=== PATIENT | female | born 1940 | race Caucasian/White ===

== ENCOUNTER 2020-03-12 15:07 | Outpatient (REF) | payer MEDICARE, SELFPAY | END 2020-03-12 15:08 | disposition home or self-care (01) | LOC: HO.MANLNP 15:07 | PROVIDERS: PCP Physician Assistant; Visit Provider Physician Assistant | DX: R30.9 Painful micturition, unspecified (principal) | CPT/HCPCS: 87086; 87088; 87186 ==

== ENCOUNTER 2020-04-03 09:53 | Outpatient (REF) | payer MEDICARE, SELFPAY ==
[2020-04-03 11:35] LABS: Glucose Urine UA NEG (NEG); Leukocyte Esterase Urine TRACE (NEG); Nitrite Urine POS (NEG); PH 6.5 (5.0-8.0); Specific Gravity - Urine 1.025 (1.005-1.025); Urine Blood NEG (NEG); Urine Ketones NEG (NEG); Urine Protein NEG (NEG-TRACE)
[2020-04-03 11:41] LABS: Appearance Urine HAZY; Color Urine YELLOW
[2020-04-03 12:33] LABS: RBC Urine 0 /HPF (0)
[2020-04-03 12:34] LABS: Bacteria Urine 3+ /LPF
== END 2020-04-03 09:54 | disposition home or self-care (01) ==
LOC: HO.MANLNP 09:53
PROVIDERS: PCP Physician Assistant; Visit Provider Physician Assistant
DX: N89.8 Other specified noninflammatory disorders of vagina (principal)
CPT/HCPCS: 81001; 87086; 87088; 87186

== ENCOUNTER 2020-07-08 08:37 | Outpatient (REF) | payer MEDICARE, SELFPAY ==
[2020-07-08 11:21] LABS: MANUAL DIFF FLAG NO
[2020-07-08 12:22] LABS: Basophils Percent Auto 0.3 % (0-2); Eosinophils Absolute Auto 0.3 X10*3/uL (0.0-0.4); Eosinophils Percent Auto 3.8 % (0-4); Hematocrit 40.3 % (37-47); Hemoglobin 12.7 g/dl (12.0-16.0); Imm Gran Abs Auto 0.04 X10*3/uL (0.00-0.03); Imm Gran Pct Auto 0.5 % (0.0-0.4); Lymphocytes Absolute Auto 2.3 X10*3/uL (1.2-4.9); Mean Corpuscular HGB Conc 31.5 g/dl (31.0-35.0); Mean Corpuscular Hemoglobin 28.5 pg (27.0-33.0); Mean Corpuscular Volume 90.6 fL (80-98); Mean Platelet Volume 10.9 fL (9.4-12.3); Monocytes Absolute Auto 0.7 X10*3/uL (0.1-1.2); Monocytes Percent Auto 9.7 % (2-11); Neutrophils Percent Auto 54.7 % (45-73); Platelet Count 308 X10*3/uL (160-400); Red Blood Count 4.45 X10*6/uL (4.20-5.50); White Blood Count 7.3 X10*3/uL (4.8-10.8)
[2020-07-08 12:38] LABS: Alanine Aminotransferase 8 U/L (0-31); Albumin Level 4.1 g/dL (3.5-5.0); Alkaline Phosphatase 128 U/L (39-117); Anion Gap 12 (12-20); Aspartate Amino Transferase 14 U/L (5-31); Bilirubin Total 0.7 mg/dL (0.0-1.0); Blood Urea Nitrogen 14 mg/dL (9-16); Calcium 9.3 mg/dL (8.4-10.2); Carbon Dioxide 25 mmol/L (22-29); Chloride 106 mmol/L (96-108); Estimated Glomerular Filt Rate 59; Glucose Random 101 mg/dL (60-115); Iron 95 mcg/dL (30-160); Percent Iron Saturation 25 % (15-50); Potassium 4.5 mmol/L (3.3-5.1); Sodium 138 mmol/L (135-145); Total Iron Binding Capacity 382 mcg/dL (228-428); Total Protein 6.8 g/dL (6.5-8.0); Unsaturated Iron Binding 287 ug/dL
[2020-07-08 12:50] LABS: Vitamin B12 502 pg/mL (200-900)
[2020-07-08 12:58] LABS: Ferritin 25 ng/mL (10-250); Thyroid Stimulating Hormone 2.69 uIU/mL (0.32-4.0)
== END 2020-07-08 08:38 | disposition home or self-care (01) ==
LOC: HO.MANLDS 08:37
PROVIDERS: PCP Internal Medicine; Visit Provider Internal Medicine
DX: R53.83 Other fatigue (principal)
CPT/HCPCS: 36415; 80053; 82607; 82728; 83540; 84443; 85025

== ENCOUNTER 2021-05-21 10:42 | Outpatient (REF) | payer MEDICARE, SELFPAY ==
[2021-05-21 13:28] LABS: Hematocrit 37.5 % (37.0-47.0); Hemoglobin 12.3 g/dl (12.0-16.0); Mean Corpuscular HGB Conc 32.8 g/dl (31.0-35.0); Mean Corpuscular Volume 88.4 fL (80.0-98.0); Mean Platelet Volume 11.1 fL (9.4-12.3); Platelet Count 283 X10*3/uL (160-400); Red Blood Count 4.24 X10*6/uL (4.20-5.50); Red Cell Distribution Width 14.4 % (11.0-16.0); White Blood Count 8.8 X10*3/uL (4.8-10.8)
[2021-05-21 13:50] LABS: Alanine Aminotransferase 11 U/L (0-31); Alkaline Phosphatase 100 U/L (39-117); Anion Gap 13 (12-20); Aspartate Amino Transferase 16 U/L (5-31); Bilirubin Total 0.3 mg/dL (0.0-1.0); Blood Urea Nitrogen 10 mg/dL (9-16); Calcium 9.6 mg/dL (8.4-10.2); Carbon Dioxide 24 mmol/L (22-29); Chloride 108 mmol/L (96-108); Estimated Glomerular Filt Rate 47; Glucose Random 81 mg/dL (60-115); Potassium 4.8 mmol/L (3.3-5.1); Sodium 140 mmol/L (135-145); Total Protein 7.2 g/dL (6.5-8.0)
[2021-05-21 14:11] LABS: Thyroid Stimulating Hormone 2.72 uIU/mL (0.32-4.0); Vitamin D 25-OH Total 52.3 ng/mL (>30)
== END 2021-05-21 10:43 | disposition home or self-care (01) ==
LOC: HO.MANLDS 10:42
PROVIDERS: PCP Internal Medicine; Visit Provider Internal Medicine
DX: I10 Essential (primary) hypertension (principal); I48.91 Unspecified atrial fibrillation
CPT/HCPCS: 36415; 80053; 82306; 84443; 85027

== ENCOUNTER 2021-11-05 13:41 | Outpatient (REF) | payer MEDICARE, SELFPAY ==
[2021-11-05 20:02] LABS: Uric Acid 8.9 mg/dL (2.4-5.7)
== END 2021-11-05 13:42 | disposition home or self-care (01) ==
LOC: HO.MANLDS 13:41
PROVIDERS: Visit Provider Physician Assistant
DX: M10.9 Gout, unspecified (principal)
CPT/HCPCS: 36415; 84550

== ENCOUNTER 2021-12-31 10:28 | Outpatient (REF) | payer MEDICARE, SELFPAY ==
[2021-12-31 14:27] LABS: Uric Acid 8.6 mg/dL (2.4-5.7)
== END 2021-12-31 10:29 | disposition home or self-care (01) ==
LOC: HO.MANLDS 10:28
PROVIDERS: Visit Provider Internal Medicine
DX: M10.9 Gout, unspecified (principal)
CPT/HCPCS: 36415; 84550

== ENCOUNTER 2022-01-06 10:32 | Outpatient (REF) | payer MEDICARE, SELFPAY ==
[2022-01-06 14:22] LABS: Appearance Urine Clear; Color Urine Yellow; Glucose Urine UA Negative (Negative); Leukocyte Esterase Urine Trace (Negative); Nitrite Urine Negative (Negative); PH 6.5 (5.0-9.0); Specific Gravity - Urine 1.015 (1.005-1.025); Urine Blood Negative (Negative); Urine Ketones Negative (Negative); Urine Protein Negative (Neg-Trace)
[2022-01-06 14:25] LABS: Bacteria Urine None Seen (None Seen); Hyaline Casts Urine 0-2 /LPF (0-2); RBC Urine 0-2 /HPF (0-2); Squamous Epithelial Cell Urine 0-2 /HPF (0-2); WBC Urine 0-5 /HPF (0-5)
== END 2022-01-06 10:33 | disposition home or self-care (01) ==
LOC: HO.MANLDS 10:32
PROVIDERS: Visit Provider Internal Medicine
DX: N39.0 Urinary tract infection, site not specified (principal)
CPT/HCPCS: 81001; 87086

== ENCOUNTER 2023-06-21 09:05 | Outpatient (REF) | payer MEDICARE, SELFPAY ==
[2023-06-21 13:16] LABS: Appearance Urine Clear; Color Urine Yellow; Glucose Urine UA Negative (Negative); Leukocyte Esterase Urine Moderate (2+) (Negative); Nitrite Urine Negative (Negative); Specific Gravity - Urine 1.015 (1.005-1.025); UMIC TRIGGER UACC YES; Urine Blood Negative (Negative); Urine Ketones Negative (Negative); Urine Protein Negative (Neg-Trace)
[2023-06-21 13:19] LABS: Bacteria Urine 4+ (None Seen); Hyaline Casts Urine 0-2 /LPF (0-2); RBC Urine 0-2 /HPF (0-2); Squamous Epithelial Cell Urine 0-2 /HPF (0-2); UACC Culture Trigger YES; WBC Urine 21-50 /HPF (0-5)
[2023-06-21 13:31] LABS: MANUAL DIFF FLAG NO
[2023-06-21 13:46] LABS: Basophils Percent Auto 0.4 % (0-2); Eosinophils Absolute Auto 0.3 X10*3/uL (0.0-0.4); Eosinophils Percent Auto 4.3 % (0-4); Hemoglobin 12.9 g/dl (12.0-16.0); Imm Gran Abs Auto 0.03 X10*3/uL (0.00-0.03); Imm Gran Pct Auto 0.4 % (0.0-0.4); Lymphocytes Absolute Auto 1.8 X10*3/uL (1.2-4.9); Lymphocytes Percent Auto 24.6 % (20-40); Mean Corpuscular HGB Conc 31.5 g/dl (31.0-35.0); Mean Corpuscular Hemoglobin 27.8 pg (27.0-33.0); Mean Corpuscular Volume 88.4 fL (80.0-98.0); Mean Platelet Volume 11.8 fL (9.4-12.3); Monocytes Absolute Auto 0.7 X10*3/uL (0.1-1.2); Monocytes Percent Auto 9.3 % (2-11); Neutrophils Absolute Auto 4.4 x10*3/uL (2.0-8.3); Platelet Count 171 X10*3/uL (160-400); Red Blood Count 4.64 X10*6/uL (4.20-5.50); Red Cell Distribution Width 15.9 % (11.0-16.0); White Blood Count 7.2 X10*3/uL (4.8-10.8)
[2023-06-21 14:43] LABS: Alanine Aminotransferase 8 U/L (0-31); Albumin Level 3.8 g/dL (3.5-5.0); Alkaline Phosphatase 117 U/L (39-117); Anion Gap 14 (12-20); Aspartate Amino Transferase 17 U/L (5-31); Bilirubin Total 0.6 mg/dL (0.0-1.0); Blood Urea Nitrogen 10 mg/dL (9-16); Calcium 9.5 mg/dL (8.4-10.2); Carbon Dioxide 24 mmol/L (22-29); Chloride 108 mmol/L (96-108); Cholesterol 230 mg/dL (<200); Estimated Glomerular Filt Rate 57; Glucose Random 88 mg/dL (60-115); HDL Cholesterol 42 mg/dL (>40); LDL Cholesterol Calculated 162 mg/dL (<100); Potassium 4.4 mmol/L (3.3-5.1); Sodium 142 mmol/L (135-145); Total Protein 7.4 g/dL (6.5-8.0); Triglycerides 130 mg/dL (<150)
[2023-06-21 15:02] LABS: Thyroid Stimulating Hormone 2.62 uIU/mL (0.32-4.0); Vitamin D 25-OH Total 68.8 ng/mL (>30)
[2023-06-22 02:59] LABS: Vitamin B12 992 pg/mL (200-900)
== END 2023-06-21 09:06 | disposition home or self-care (01) ==
LOC: HO.MANLDS 09:05
PROVIDERS: Visit Provider Internal Medicine
DX: Z00.01 Encounter for general adult medical examination with abnormal findings (principal); Z13.6 Encounter for screening for cardiovascular disorders; R30.0 Dysuria
CPT/HCPCS: 36415; 80053; 80061; 81001; 82306; 82607; 84443; 85025; 87086; 87147

== ENCOUNTER 2023-12-14 08:31 | Outpatient (REF) | payer MEDICARE, SELFPAY ==
[2023-12-14 13:46] LABS: Basophils Percent Auto 0.3 % (0-2); Eosinophils Absolute Auto 0.3 X10*3/uL (0.0-0.4); Eosinophils Percent Auto 3.9 % (0-4); Hematocrit 39.6 % (37.0-47.0); Hemoglobin 12.8 g/dl (12.0-16.0); Imm Gran Abs Auto 0.03 X10*3/uL (0.00-0.03); Imm Gran Pct Auto 0.4 % (0.0-0.4); Lymphocytes Percent Auto 28.1 % (20-40); MANUAL DIFF FLAG SCAN; Mean Corpuscular HGB Conc 32.3 g/dl (31.0-35.0); Mean Corpuscular Hemoglobin 28.3 pg (27.0-33.0); Mean Corpuscular Volume 87.6 fL (80.0-98.0); Monocytes Absolute Auto 0.7 X10*3/uL (0.1-1.2); Monocytes Percent Auto 9.7 % (2-11); Neutrophils Percent Auto 57.6 % (45-73); PLT CLUMP 1; Red Blood Count 4.52 X10*6/uL (4.20-5.50); Red Cell Distribution Width 15.8 % (11.0-16.0); SCAN SMEAR FLAG 1
[2023-12-14 13:54] LABS: Alanine Aminotransferase 10 U/L (0-31); Albumin Level 4.1 g/dL (3.5-5.0); Alkaline Phosphatase 109 U/L (39-117); Anion Gap 13 (12-20); Aspartate Amino Transferase 19 U/L (5-31); Bilirubin Total 0.5 mg/dL (0.0-1.0); Blood Urea Nitrogen 12 mg/dL (9-16); Calcium 9.7 mg/dL (8.4-10.2); Carbon Dioxide 24 mmol/L (22-29); Chloride 106 mmol/L (96-108); Cholesterol 248 mg/dL (<200); Estimated Glomerular Filt Rate 48; Glucose Random 98 mg/dL (60-115); HDL Cholesterol 40 mg/dL (>40); LDL Cholesterol Calculated 178 mg/dL (<100); Potassium 4.8 mmol/L (3.3-5.1); Sodium 138 mmol/L (135-145); Total Protein 7.7 g/dL (6.5-8.0); Triglycerides 154 mg/dL (<150)
[2023-12-14 14:03] LABS: Estimated Average Glucose 117 mg/dL; Hemoglobin A1c % 5.7 % (<6.0)
[2023-12-14 14:09] LABS: White Blood Count 6.9 X10*3/uL (4.8-10.8)
[2023-12-14 14:10] LABS: SLIDE REVIEW VERIFIED
[2023-12-14 14:30] LABS: Folate 7.9 ng/mL (> or = 4.0); Vitamin B12 > 2000 pg/mL (200-900)
== END 2023-12-14 08:32 | disposition home or self-care (01) ==
LOC: HO.MANLDS 08:31
PROVIDERS: Visit Provider Physician Assistant
DX: E53.8 Deficiency of other specified B group vitamins (principal); E78.00 Pure hypercholesterolemia, unspecified; Z13.1 Encounter for screening for diabetes mellitus
CPT/HCPCS: 36415; 80053; 80061; 82607; 82746; 83036; 85025

== ENCOUNTER 2024-07-28 10:14 | Outpatient (REF) | payer MEDICARE, SELFPAY ==
[2024-07-28 14:11] LABS: Vitamin B12 297 pg/mL (200-900)
== END 2024-07-28 10:15 | disposition home or self-care (01) ==
LOC: HO.MANLDS 10:14
PROVIDERS: Visit Provider Internal Medicine
DX: E53.8 Deficiency of other specified B group vitamins (principal)
CPT/HCPCS: 36415; 82607

== ENCOUNTER 2024-09-15 09:14 | Outpatient (REF) | payer MEDICARE, SELFPAY ==
--- OUTSIDE RECORDS SUMMARY | 2024-09-15 09:27 | XMS_ITS ---
Author Organization [facility] [employer] 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 PESSARY FOLLOW UP. 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 * Medical History:? Objective: * Vitals:? * Examination: ???Genitourinary: ?EXTERNAL GENITALIA:?External Genitalia:?normal ?VAGINA:?Vagina:?no cystocele, no lesions, no rectocele ?BLADDER:?Bladder:?no mass, nontender ?URETHRA:?Urethra:?no erythema or lesions present ?ANUS AND PERINEUM:?Anus/Perineum:?visually normal??? 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 Plan: * Treatment: * Follow Up:?2 Weeks (Reason: Pessary check) * Images: Billing Information: * Visit Code:? 56598 Office Visit, Est Pt., Level 3. * Procedure Codes:? 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
--- OUTSIDE RECORDS SUMMARY | 2024-09-15 09:27 | XMS_ITS ---
Author Organization [facility] Address [address] [place] [address] Care Team Providers Care Couples Therapist Name Role Phone LESLEY ALVA Primary Care Provider HAO Treviño Unavailable [phone] Allergies Allergen (clinical drug ingredient) Drug/Non Drug Allergy documented on EMR Reaction Allergy Type Onset Date Status Substance with 6-jqmzcfv-8-methylglut aryl-coenzyme A reductase inhibitor mechanism of action (substance) Statins joint pain Drug Allergy Active REASON FOR VISIT PESSARY FELL OUT AGAIN Medications Medication SIG (Take, Route, Frequency, Duration) Notes Start Date End Date Status dilTIAZem HCl ER Coated Beads 300 MG TAKE 1 CAPSULE BY MOUTH EVERY DAY Oral for 90 Active Xarelto 20 MG Oral for 90 Acti ve Vitamin A & D 53526-177 UNIT as directed Orally Active Zafirlukast 20 MG Oral for 30 Active Omeprazole 20 MG Oral for 90 A ctive Fosinopril Sodium 20 MG Oral for 90 Not-Taking Social History Tobacco Use: Social History Observation Description Date Details (start date - stop date) Former Smoker NA - NA Tobacco Use/Smoking Question Answer Notes Are you a former smoker How long has it been since you last smoked? > 10 years Alcohol Screen (Audit-C) Question Answer Notes Did you have a drink contain ing alcohol in the past year? Yes How often did you have a dri nk containing alcohol in the past year? Monthly or less (1 point) How many drinks did you have on a typical day when you were drinking in the past year? 1 or 2 drinks (0 point) How often did you have 6 or more drinks on one occasion in the past year? Never (0 point) Points 1 Interpretation Negative Sexual History Question Answer Notes Had sex in the past 12 months (vaginal, oral, or anal)? No Have you ever had a Sexually transmitted disease ? No Last menstrual period 1990 Tobacco use other than smoking: Question Answer Notes Are you an other tobacco user? 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 Will order and try a cube pessary. If this is not effective, may need to refer to urogyn for consideration of surgical treatment Plan Of Treatment Treatment Notes Assessment Notes Prolapse of vaginal vault af ter hysterectomy Unable to fit a Gelhorn pessary, as vasa lva pushed the pessary out. Will order and try a cube pessary. 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 One needs to be ordered * ROS:?Women Only:?Patient denies?abnormal bleeding, vaginal discharge/itching.?Comments?admits?feeling of tissue protruding through vaginal opening.?Genitourinary:?Patient denies?urinary incontinence.?Denies?Blood in urine.?Denies?Difficulty urinating.?Denies?Painful urination.? * Medical History:? * Surgical History:?ANJEL/BSO fo r bleeding 1991CHOLECYSTECTOMY 2018 * Hospitalization/Major Diagno stic Procedure:?CHILDBIRTH * Family History:?Mother: dece ased.?Father: , arteriosclerosis.?Brother Robert: 64 yrs, diabetes, amputations, heart disease.?Sister Maribell: 41 yrs, at age 41 ovarian cancer.?Sister Emily: 92 yrs, AFib, open heart surgery.? * Social History:?Tobacco Use:?Tobacco Use/Smoking?Are you a?former smoker ?How long has it been since you last smoked??> 10 years ?Tobacco use other than smoking?Are you an other tobacco user??No ???Sexual History:?Sexual History?Had sex in the past 12 months (vaginal, oral, or anal)??No ?Have you ever had a Sexually transmitted disease??No ?Last menstrual period?1990 ?Details of Sexual History?Are you sexually active??No ?Are you having any sexual problems??No ?Have you had any sexually transmitted diseases (STDs)??No ?Sexual Abuse?History:?none ???Drugs/Alcohol:?Drugs?Have you used drugs other than those for medical reasons in the past 12 months??No ?Alcohol Screen (Audit-C)?Did you have a drink containing alcohol in the past year??Yes ?How often did you have a drink containing alcohol in the past year??Monthly or less (1 point) ?How many drinks did you have on a typical day when you were drinking in the past year??1 or 2 drinks (0 point) ?How often did you have 6 or more drinks on one occasion in the past year??Never (0 point) ?Points?1 ?Interpretation?Negative ?Caffeine?Intake:?1-2 cups per day ???Miscellaneous:?Caffeine: 1-2 cups per day. ?Children: 2. ?Community involvements: none. ?Domestic violence: none. ?Exercise: YARD WORK/GARDENING. ?Home smoke detector use: yes, smoke detectors, carbon monoxide detector. ?Housing: owns a home. ?Living with: alone. ?Marital status: since 2006. ?Natural support system: yes, relies on family. 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 ?Pets: none. ?Sexually active: no. ?Verbal abuse: none. * Medications:?TakingVitamin A & D 78244-783 UNIT Tablet as directed Orally Xarelto 20 MG Tablet Oral dilTIAZem HCl ER Coated Beads 300 MG Capsule Extended Release 24 Hour TAKE 1 CAPSULE BY MOUTH EVERY DAY Oral Omeprazole 20 MG Capsule Delayed Release Oral Zafirlukast 20 MG Tablet Oral Taking Vitamin A & D 43816-002 UNIT Tablet as directed Orally Taking Xarelto 20 MG Tablet Oral Taking dilTIAZem HCl ER Coated Beads 300 MG Capsule Extended Release 24 Hour TAKE 1 CAPSULE BY MOUTH EVERY DAY Oral Taking Omeprazole 20 MG Capsule Delayed Release Oral Taking Zafirlukast 20 MG Tablet Oral Not-TakingFosinopril Sodium 20 MG Tablet Oral Not-Taking Fosinopril Sodium 20 MG Tablet Oral * Allergies:?Statins: joint pa in - Side Effectsno[Allergies Verified] Objective: * Vitals:?Ht: 61 in, Wt: 153 l bs, BMI:28.91 Index, BP: 144/76 mm Hg, Temp: 97.1 F. * Examination: ???Genitourinary: ?EXTERNAL GENITALIA:?External Genitalia:?normal ?VAGINA:?Vagina:?normal vaginal vault with central or paravaginal defects, no lesions ?BLADDER:?Bladder:?no mass, nontender ?URETHRA:?Urethra:?no erythema or lesions present ?ANUS AND PERINEUM:?Anus/Perineum:?visually normal??? 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 Plan: * Treatment: * Procedure Codes:?94596 INSER T PESSARY/OTHER DEVICE * Follow Up:?prn * Images: Billing Information: * Visit Code:? 53261 Office Visit, Est Pt., Level 3. * Procedure Codes:? 20177 INSERT PESSARY/OTHER DEVICE. * Sign off status: Completed true * Provider:?HAO HAMMOND MD Date:?2023 Generated for Kylieghi yogi/Carmela/eTransmitting on:?09/15/2024 09:27 AM EDT History and Physical Notes * HPI (History of Present Illness) Category Sub-Category Detail Notes Category Not es REAL PROPERTY EVALUATOR (Procedures/Surgerie s) Pessary Insertion Follow-up: In today for follow-up of Pessary insertion for:: vaginal prolapse Pessary type:: Ring Pessary size:: 5 Satisfied with the way the P essary is performing:: No it fell out about 12 hours later with a bowel movement Able to remove the Pessary on her own:: No Reports vaginal bleeding:: no Reports abnormal vaginal discharge:: no Pessary removed, cleaned, and replaced: no Vagina irrigated with antiseptic:: no New Pessary inserted and fitted:: Yes bu t we don't have a pessary in stock that can help her. One needs to be ordered Examination Category Sub-Category Detail Notes Category Not es Genitourinary EXTERNAL GENITALIA: External Genitalia:: nor mal VAGINA: Vagina:: normal vagi nal vault with central or paravaginal defects, no lesions BLADDER: Bladder:: no mass, nontender URETHRA: Urethra:: no erythema or lesions present ANUS AND PERINEUM: Anus/Perineum:: visually norm al
--- OUTSIDE RECORDS SUMMARY | 2024-09-15 09:27 | XMS_ITS ---
Author Organization [facility] Address [address] [place] [address] Care Team Providers Care Pharmacy Technician Assistant Name Role Phone LESLEY ALVA Primary Care Provider HAO Treviño Unavailable [phone] Allergies Allergen (clinical drug ingredient) Drug/Non Drug Allergy documented on EMR Reaction Allergy Type Onset Date Status Substance with 4-lbiqjxv-3-methylglut aryl-coenzyme A reductase inhibitor mechanism of action (substance) Statins joint pain Drug Allergy Active REASON FOR VISIT DIFFERENT SIZE PESS Medications Medication SIG (Take, Route, Frequency, Duration) Notes Start Date End Date Status Fosinopril Sodium 20 MG Oral for 90 Not-Taking dilTIAZem HCl ER Coated Beads 300 MG TAKE 1 CAPSULE BY MOUTH EVERY DAY Oral for 90 Active Xarelto 20 MG Oral for 90 Acti ve Vitamin A & D 06450-421 UNIT as directed Orally Active Zafirlukast 20 MG Oral for 30 Active Omeprazole 20 MG Oral for 90 A ctive Social History Tobacco Use: Social History Observation [...] other tobacco user? 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 Assessments Encounter Date Diagnosis (ICD Code) Assessment Notes Treatment Notes Treatment Clinical Notes Section Notes 05/25/2023 Rectocele (ICD-10 - N81.6) 05/25/2023 Prolapse of vaginal vault after hysterectomy (ICD-10 - N99.3) Plan Of Treatment Next Appt Details Follow Up: about 2 weeks, Re ason: pessary check Progress Notes * BELA CRAIGDOB:1940 (82 yo F)Acc No.[id number]:05/25/2023 PROGRESS NOTES Patient:?BELA CRAIG Provider:?HAO HAMMOND MD :1940???Age:82 Y???Sex:Female D ate:05/25/2023 Address:[address] [place] [address] Pcp:LESLEY ALVA Subjective: * Chief Complaints: * ???DIFFERENT SIZE PESS * HPI: ???Constitutional:? Bela is an 82 yo seen last week for a pessary fitting. She was fit with a number 4 ring pessary with support, but the pessary came out when having a bowel movement. She is here today for a second fitting. ? Going to [place] for two weeks. Discussed how to attempt to insert pessary if it should fall out again. If it does fall out, she would then need to be fit with a gelhorn, as the #6 ring pessary is too big for her. ???GUSSET EDGER (Procedures/Surgeries):?Pessary Insertion Follow-up:?In today for follow-up of Pessary insertion for:?rectocele, vaginal prolapse ?Pessary type:?Ring ?Pessary size:?4 ?Satisfied with the way the Pessary is performing:?No ?New Pessary inserted and fitted:?Yes ?Type:?Ring ?Size:?5 * ROS:?Women Only:?Patient denies?vaginal bleeding.?Patient complaining of?dryness of vaginal bulge, irritation.? * Medical History:? * Director Of Primary Care History:?/ Para?2/2.?Sexual activity?not currently sexually active.?Last Pap Smear:?1990.?Mammogram:?MAY 2022.?LMP and menses?hysterectomy.?Menarche?12.?Hysterectomy:?1990.?Colonoscopy?2019.?Bone Density:?DOES NOT REMEMBER BUT HAD IT DONE AT [facility].?Gardasil:?has not had vaccine.?*Hep B Vac?NO.? * OB History:?Total pregnancies?2.?NVD?2.? # 1:?normal spontaneous vaginal delivery (), 04/16/63, Bela Cardona, 9lb 2.5 oz, kidney infection.? # 2:?normal spontaneous vaginal delivery (), 10/08/64, Ugo, 8lb 3oz, no complications.? * Surgical History:?ANJEL/BSO fo r bleeding 1990CHOLECYSTECTOMY 2018 * Hospitalization/Major Diagno stic Procedure:?CHILDBIRTH * [...] support system: yes, relies on family. 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 ?Pets: none. ?Sexually active: no. ?Verbal abuse: none. * Medications:?TakingVitamin A & D 40428-067 UNIT Tablet as directed Orally Xarelto 20 MG Tablet Oral dilTIAZem HCl ER Coated Beads 300 MG Capsule Extended Release 24 Hour TAKE 1 CAPSULE BY MOUTH EVERY DAY Oral Omeprazole 20 MG Capsule Delayed Release Oral Zafirlukast 20 MG Tablet Oral Taking Vitamin A & D 94983-892 UNIT Tablet as directed Orally Taking Xarelto [...] in, Wt: 153 l bs, BMI:28.91 Index, Temp: 97.5 F. Assessment: * Assessment: 1.?Rectocele - N81.6?2.?Prol apse of vaginal vault after hysterectomy - N99.3? Plan: * Treatment: * Procedure Codes:?32750 INSER T PESSARY/OTHER DEVICE * Follow Up:?about 2 weeks (Re ason: pessary check) * Images: Billing Information: * Visit Code:? * Procedure Codes:? 61699 INSERT PESSARY/OTHER DEVICE. * Sign off status: Completed true * Provider:?HAO HAMMOND MD Date:?2023 Generated for Ja calix/Carmela/Donna on:?09/15/2024 09:27 AM EDT History and Physical Notes * HPI (History of Present Illness) Category Sub-Category Detail Notes Category Not es Constitutional Going to [place] for two weeks. Discussed how to attempt to insert pessary if it should fall out again. If it does fall out, she would then need to be fit with a gelhorn, as the #6 ring pessary is too big for her. GUSSET EDGER (Procedures/Surgeries ) Pessary Insertion Follow-up: In today for follow-up of Pessary insertion for:: rectocele, vaginal prolapse Pessary type:: Ring Pessary size:: 4 Satisfied with the way the Pessary is pe rforming:: No New Pessary inserted and fitted:: Yes ?Type:: Ring ?Size:: 5
--- OUTSIDE RECORDS SUMMARY | 2024-09-15 09:28 | XMS_ITS | Data Portability ---
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) MDM HIGH MUST MEET 2 OUT OF 3 ELEMENTS: PROBLEMS, DATA OR RISK ELEMENT 1: PROBLEMS 1 OR MORE CHRONIC ILLNESS W/SEVERE EXACERBATION, PROGRESSION MAY REQUIRE HOSPITAL LEVEL CARE OR 1 ACUTE OR CHRONIC ILLNESS OR INJURY THAT POSES A THREAT TO LIFE OR BODILY FUNCTION ELEMENT 2: DATA: MUST MEET 2 OF 3 CATEGORIES CATEGORY 1 REVIEW OF PRIOR EXTERNAL NOTES REVIEW OF THE RESULTS ORDERING OF EACH TEST ASSESSMENT REQUIRING INDEPENDENT HISTORIAN(S) CATEGORY 2: INDEPENDENT INTERPRETATION OF TESTS BY ANOTHER PROVIDER/SPECIALI ST CATEGORY 3: DISCUSSION OF MGT OR TEST INTERPRETATION W/EXTERNAL PHYSICIAN/SPECIAL IST ELEMENT 3: RISK HIGH RISK OF MORBIDITY FROM ADDITIONAL DIAGNOSTIC TESTING OR TREATMENT PROVIDER MUST THOROUGHLY DOCUMENT EACH ELEMENT THAT IS COVERED Not available 03/29/2024 12:23:47 07/28/2024 07/28/2024 Patient presente d to office today for their Medicare Annual Wellness Visit. Education was provided on healthy nutrition, including a diet rich in fruits and vegetables, minimizing simple carbohydrates, salt, and saturated fats. Encouraged regular cardiovascular exercise such as walking at least 30 minutes daily, 5 times per week. Emphasized preventive health measures and educated pt on fall prevention and community-based lifestyle interventions to help reduce health risks and promote healthy living. 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) MDM MODERATE MUST MEET 2 OUT OF 3 ELEMENTS: PROBLEMS, DATA OR RISK ELEMENT 1: PROBLEMS ADDRESSED 1 OR MORE CHRONIC ILLNESS WITH EXACERBATION OR 2 OR MORE STABLE CHRONIC ILLNESSES OR 1 UNDIAGNOSED NEW PROBLEM OR 1 ACUTE ILLNESS W/SYMPTOMS OR 1 ACUTE COMPLICATED INJURY ELEMENT 2: DATA MUST MEET 1 OF 3 CATEGORIES CATEGORY 1: REVIEW OF PRIOR EXTERNAL NOTES, REVIEW OF RESULTS, ORDERING OF EACH TEST, ASSESSMENT REQUIRING INDEPENDENT HISTORIAN OR CATEGORY 2: INDEPENDENT INTERPRETATION OF TESTS BY ANOTHER PHYSICIAN OR SPECIALIST OR CATEGORY 3: DISCUSSION OF MGT OR TEST INTERPRETATION W/EXTERNAL PHYSICIAN OR SPECIALIST ELEMENT 3: RISK RISK OF COMPLICATIONS AND/OR MORBIDITY OR MORTALITY OF PATIENT MANAGEMENT PROVIDER MUST THOROUGHLY DOCUMENT EACH ELEMENT THAT IS COVERED Not available 07/28/2024 10:11:07 Plan of Treatment Reminders Order Date Submit Date Provider Last Modified By Organization Details Last Modified Time Details Appointments FOLLOW UP 2024 09:00A M DR ALVA Not available Not available Not available FOLLOW UP 2024 01:45P M DR ALVA Not available Not available Not available Nurse Visit 2024 09:30A [facility] Not available Not available Not available FOLLOW UP 2024 10:00A M DR ALVA Not available Not available Not available Lab uric acid, serum or plasma 2024 025 [facility], [address] [place] [address], [id number], 07/28/2024 10:20:48 CBC w/ auto diff 2024 025 [facility], [address] [place] [address], [id number], 07/28/2024 10:20:48 CMP, serum or plasma 2024 025 [facility], [address] [place] [address], [id number], 07/28/2024 10:20:48 vitamin B12, serum 2024 025 [facility], [address] [place] [address], [address], 07/31/2024 12:09:29 Referral oncology clinic referral - pt with onset of right breast pain and wished eval of her breast please dx of breast ca 2012 024 jimi Michaels MD, [address] [place], [address], 03/31/2024 08:46:38 Procedures None recorded. Surgeries None recorded. Imaging bone density 2023 024 [facility], [address] [place] [address], [id number], 04/12/2024 08:30:20 MAMMO, diagnosti c, bilateral 2023 024 [facility], [address] [place] [address], [id number], 04/12/2024 08:30:20 Medication Orders prednison e [address] tablet [address] [facility]2024, [address] [place], [address], 07/28/2024 10:07:22 desonide 0.05 % topical cream [address] [facility]2024, [address] [place], [address], 03/29/2024 12:30:32 cyanocoba linsey (vit B-12) 1,000 mcg/mL injection solution 2023 024 [facility]armacy #5, [address] [place], [address], 03/10/2024 10:19:51 Patient TargetsNo targets recorded. Patient Instructions Encounter Date Encounter Id Patient Instructions Last Modified By Organization Details Last Modified Time 03/29/2024 [id number] osteoporosis: care instructions Not available 03/29/2024 12:22:46 pulse oximetry* Not available 03/29/2024 12:22:46 07/28/2024 [id number] gout: care instructions Not available 07/28/2024 10:08:03 pulse oximetry* Not available 07/28/2024 10:07:19 interstitial swetha g disease: care instructions Not available 07/28/2024 10:07:19 carotid stenosis : care instructions Not available 07/28/2024 10:07:19 advance care planning: care instructions Not available 07/28/2024 10:07:19 Discussed and explained advance directives such as standard forms to the {{patient caregiv er patient and caregiver}}. Face to face discussion lasted for a duration of ___ minutes. [email or web address] Not available 07/26/2024 10:59:49 Reason for Referral Oncology Clinic Referral for Malignant tumor of breast pt with onset of right breast pain and wished eval of her breast please dx of breast ca 2013 Referring Physician: Nick Alva, Internal Medicine, Encounter Date: 03/29/2024 Results Created Date Observation Date Name Description Value Unit Range Abnormal Flag Note LastModifiedBy Organization Detail LastModifiedTime 03/29/20 24 03/29/2024 pulse oxime try* Result 97 Not Available [facility] [address], [place], [address], 03/28/2024 11:59:55 07/29/19 25 07/28/2024 pulse oxime try* Result 98 Not Available [facility] [address], [place], [address], 07/26/2024 11:01:29 04/19/20 24 04/18/2024 pulmo nary funct ion test* No observ ation record ed. [facility] Critical [facility] Medicine [address], [place], [address], 04/20/2024 19:10:59 05/25/19 25 05/25/2024 MAMMO , diagn ostic , bilat eral No observ ation record ed. [email or web address] ([facility]) - Callback Orders Only [address] [facility], [place], [address], 05/25/2024 19:51:43 05/25/19 25 05/25/2024 , samy pena No observ ation record ed. [facility] [address] [facility], [place], [address], 05/25/2024 19:51:36 Result Notes None recorded. Problems Name Problem SNOMED Code Status Onset Date Resolution Date Notes Provider Name and Address Organization Details Recorded Time Hypertens simin disorder 01038112 Active 2018 Deyanira hood [facility] 5 11:01:16 Hyperchol esterolem ia 98709163 Active 2018 Deyanira hood [facility] 5 11:01:16 Gastroeso phageal reflux disease 073472736 Active 2018 Deyanira hood [facility] 5 11:01:16 Median nail dystrophy 87190243 Active 2018 Deyanira hood [facility] 5 11:01:17 Actinic keratosis 496483549 Active 2018 Deyanira hood [facility] 5 11:01:16 Melanocyt ic nevus 391991154 Active 2018 Deyanira hood [facility] 5 11:01:17 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 98466901 Active 2018 Deyanira hood [facility] 5 11:01:17 Degenerat ion of lumbar intervert ebral disc 53957088 Active 2018 Deyanira hood [facility] 5 11:01:16 Scoliosis deformity of spine 784600910 Active 2018 Deyanira hood [facility] 5 11:01:16 Disorder of vitamin B12 978651459 Active 2018 Deyanira hood [facility] 5 11:01:17 Osteoporo sis 79403214 Active 2018 Deyanira hood [facility] 5 11:01:17 Atrial fibrillat ion 17130194 Active 2018 Deyanira hood [facility] 5 11:01:17 Malignant tumor of breast 797678793 Active 2018 Deyanira hood [facility] 5 11:01:16 Anxiety 09373649 Active 2018 Not Available [facility] 3 14:03:57 Trochante vaughn bursitis of right hip 882751394479 100 Active 2018 Deyanira hood [facility] 5 11:01:16 COVID-19 027613980 Active 2021 Not Available [facility] 3 14:03:57 Gout 76256950 Active 2021 Deyanira hood [facility] 5 11:01:16 Pain of right shoulder joint 581375476692 78009 Active 2021 Deyanira hood [facility] 5 11:00:52 Pain of right hip joint 886533105556 102 Active 2021 Deyanira hood [facility] 5 11:01:16 Interstit ial pneumonia 20484914 Active 2021 Deyanira hood [facility] 5 11:00:52 Cobalamin deficienc y 129449871 Active 2021 Deyanira hood [facility] 5 11:01:16 Carotid atheroscl erosis 414008727 Active 2021 Deyanira hood [facility] 5 11:01:16 Candidias is of vagina 29595920 Active 2021 Deyanira hood [facility] 5 11:00:52 Rupture of rotator cuff of right shoulder 991564027808 60892 Active 2021 Deyanira hood [facility] 5 11:01:16 Acute bronchiti s 14017779 Active 2022 Deyanira hood [facility] 5 11:00:52 Idiopathi c pulmonary fibrosis 094132712 Active 2022 Deyanira Hollins null, [facility] 5 11:01:16 Cardiomyo rogers 94223162 Active 2022 Deyanira Hollins null, [facility] 5 11:01:16 Acute sinusitis 06225913 Active 2022 Deyanira Hollins null, [facility] 5 11:00:52 Impacted cerumen of bilateral ears 145430737291 9108 Active 2022 Deyanira Hollins null, [facility] 5 11:00:52 Acute otitis media 7186019 Active 2022 Deyanira Hollisn null, [facility] 5 11:00:52 Acute otitis media 9975937 Active 2022 Deyanira Hollins null, [facility] 5 11:00:52 Acute gout 221237243 Active 2022 Deyanira Hollins null, [facility] 5 11:00:52 Dysuria 43717722 Active 2023 Deyanira Hollins null, [facility] 5 11:01:16 Acute urinary tract infection 236199194 Active 2023 Deyanira Hollins null, [facility] 5 11:00:52 Herpes zoster 0232858 Active 2023 Deyanira Hollins null, [facility] 5 11:00:52 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 329036669512 9100 Active 2023 Deyanira Hollins null, [facility] 5 11:01:16 Pain of right breast 1781787076 Active 2023 Deyanira Hollins null, [facility] 5 11:00:52 Facial eczema 514208028 Active 2023 Deyanira Hollins null, [facility] 5 11:01:16 Interstit ial lung disease 677791216 Active 2024 Nick Alva, DO [address] [place] [address], [phone], [facility] 5 09:56:29 Allergic urticaria 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 Procedures Surgical History Date Name Laterality Status Provider Name and Address Organization Details Recorded Time 3 Cerumen Removal completed DAPHNE MORALEZ [address] [place] [address], [phone], [facility] 10/20/2022 11:01:38 Imaging Results Imaging Date Name Status LastModified by Organiz ation Details LastModified Time 04/18/2024 pulmonary function test* completed [facility] [address] [place] [address], [address], 04/20/2024 19:10:59 05/25/2024 MAMMO, diagnostic, bilateral completed [facility] ([facility]) - Callback Orders Only [address] [place] [address], [address], 05/25/2024 19:51:43 05/25/2024 US, breast, unilateral completed [address], [address], 05/25/2024 19:51:36 Procedure Notes None recorded. Medical Equipment None Reported. Allergies Allergen ID Allergen Name Allergen Category Reaction Reaction Severity Criticality Documentation Date Start Date Code Code System Note Provider Name and Address Organization Details Recorded Time 2671 Product containin g angiotens in-conver ting enzyme inhibitor (product) medicatio n Not available Not available Not available 05/18/2018 95452 009 SNOMED Nick Alva, DO [address] [place], [address], [facility] 0 10:55:21 267 Product containin g angiotens in II receptor antagonis t (product) medicatio n Not available Not available Not available 05/18/2018 42546 008 SNOMED Rosa Maria Germán hood [facility] 9 08:23:06 2674 hydrochlo rothiazid e medicatio n Not available Not available Not available 05/18/2018 5487 RxNorm Rosa Maria hood [facility] 9 08:23:14 2675 Crestor medicatio n Not available Not available Not available 05/18/2018 73028 4 RxNorm Rosa Maria Dunlap [facility] 9 08:23:19 Medications Name Sig Start Date Stop Date Status Note LastModified by Organization Details LastModified Time cyclobenzap rine 10 mg tablet Take 1 tablet 3 times a day by oral route for 7 days. 10/12 completed Not Available Not Available Not Available fosinopril 10 mg tablet TAKE 1 TABLET BY MOUTH EVERY DAY 07/02 completed Not Available Not Available Not Available desonide 0.05 % topical cream APPLY SPARINGLY AND RUB GENTLY INTO THE AFFECTED AREA(S) BY TOPICAL ROUTE 2 TIMES PER DAY 2023 active Not Available Not Available Not Avai lable prednisone 10 mg tablet TAKE 1 TABLET BY MOUTH EVERY DAY FOR 7 DAYS active Not Available Not Available No t Available azithromyci n 250 mg tablet TAKE 2 TABLETS BY MOUTH TODAY, THEN TAKE 1 TABLET DAILY FOR 4 DAYS 08/03 completed Not Available Not Available Not Available fluconazole 150 mg tablet TAKE 1 TABLET BY MOUTH FOR 1 DAY 06/05 /2023 completed Not Available Not Available Not Available benzonatate 200 mg capsule TAKE 1 CAPSULE BY MOUTH THREE TIMES A DAY NEEDED FOR 7 DAYS 10/12 completed Not Available Not Available Not Available diltiazem CD 240 mg capsule,ext ended release 24 hr 01/13 completed Not Available Not Available Not Available meloxicam 15 mg tablet 11/20 completed Not Available Not Available Not Available diltiazem CD 360 mg capsule,ext ended release 24 hr TAKE 1 CAPSULE BY MOUTH EVERY DAY 03/12 completed Not Available Not Available Not Available levofloxaci n 250 mg tablet TAKE 1 TABLET BY MOUTH EVERY DAY FOR 3 DAYS 10/25 completed Not Available Not Available Not Available fosinopril 20 mg tablet TAKE 1 TABLET BY MOUTH EVERY DAY active Not Available Not Available No t Available valacyclovi r 500 mg tablet TAKE 1 TABLET BY MOUTH TWICE A DAY FOR 7 DAYS 2024 active Not Available Not Available Not Avai lable sulfamethox azole 800 mg-trimetho prim 160 mg tablet TAKE 1 TABLET BY MOUTH EVERY 12 HOURS FOR 10 DAYS 07/28 completed Not Available Not Available Not Available amoxicillin 500 mg tablet 07/05 completed Not Available Not Available Not Available acetaminoph en ER 650 mg tablet,exte nded release TAKE 1 TABLET BY MOUTH EVERY 8 HOURS FOR 10 DAYS 07/28 completed Not Available Not Available Not Available alprazolam 0.25 mg tablet Take 1 tablet 3 times a day by oral route for 30 days. active Not Available Not Available No t Available diltiazem CD 300 mg capsule,ext ended release 24 hr TAKE 1 CAPSULE BY MOUTH EVERY DAY active Not Available Not Available No t Available cyanocobala min (vit B-12) 1,000 mcg/mL injection solution Inject 1 mL every month by subcutane ous route. 2023 active Not Available Not Available Not Avai lable fosinopril 40 mg tablet TAKE 1 TABLET BY MOUTH EVERY DAY 07/28 completed Not Available Not Available Not Available polymyxin B sulfate 10,000 unit-trimet hoprim 1 mg/mL eye drops INSTILL 1 DROP INTO AFFECTED EYE EVERY 6 HOURS 10/12 completed Not Available Not Available Not Available flecainide 50 mg tablet TAKE 1 TABLET(S) TWICE A DAY BY ORAL ROUTE FOR 60 DAYS. 03/03 completed Not Available Not Available Not Available flecainide 100 mg tablet TAKE 1 TABLET BY MOUTH TWICE A DAY 03/03 completed Not Available Not Available Not Available hydrochloro thiazide 12.5 mg capsule 01/13 completed Not Available Not Available Not Available zafirlukast 20 mg tablet TAKE 1 TABLET BY MOUTH TWICE A DAY 07/28 completed Not Available Not Available Not Available nitroglycer in 0.4 mg sublingual tablet 05/18 completed Not Available Not Available Not Available omeprazole 20 mg capsule,del ayed release TAKE 1 CAPSULE BY MOUTH TWICE A DAY active Not Available Not Available No t Available diclofenac sodium 75 mg tablet,yoshi yed release 11/20 completed Not Available Not Available Not Available furosemide 20 mg tablet TAKE 1 TABLET BY MOUTH EVERY DAY 08/01 completed Not Available Not Available Not Available levofloxaci n 500 mg tablet Take 1 tablet every 24 hours by oral route for 7 days. 03/03 completed Not Available Not Available Not Available estradiol 0.01% (0.1 mg/gram) vaginal cream APPLY 1 GM VAGINALLY DAILY AT BEDTIME. TAKE EVERY NIGHT FOR TWO WEEKS THEN TWICE WEEKLY active Not Available Not Available No t Available methylpredn isolone 4 mg tablets in a dose pack TAKE 6 TABLETS ON DAY 1 DIRECTED ON PACKAGE AND DECREASE BY 1 TAB EACH DAY FOR A TOTAL OF 6 DAYS 08/03 completed Not Available Not Available Not Available albuterol sulfate HFA 90 mcg/actuati on aerosol inhaler Inhale 2 puffs every 4-6 hours by inhalatio n route as needed for 14 days. 07/02 completed Not Available Not Available Not Available colchicine 0.6 mg tablet 1.2 mg PO x1, then 0.6 mg PO 1h later x1, then use bid for 5 days 10/25 completed Not Available Not Available Not Available tamoxifen 20 mg tablet 05/18 completed Not Available Not Available Not Available amoxicillin 875 mg-potassiu m clavulanate 125 mg tablet TAKE 1 TABLET BY MOUTH EVERY 12 HOURS FOR 7 DAYS 11/16 completed Not Available Not Available Not Available oxycodone 5 mg tablet 07/28 completed Not Available Not Available Not Available neomycin-po lymyxin-hyd rocort 3.5 mg-10,000 unit/mL-1 % ear drops,susp INSTILL 4 DROPS INTO AFFECTED EAR(S) 3 TIMES A DAY 11/16 completed Not Available Not Available Not Available nitrofurant oin monohydrate /macrocryst als 100 mg capsule TAKE 1 CAPSULE BY MOUTH EVERY 12 HOURS FOR 7 DAYS active Not Available Not Available No t Available DILT-XR 180 mg capsule, extended release 03/12 completed Not Available Not Available Not Available Symbicort 160 mcg-4.5 mcg/actuati on HFA aerosol inhaler TAKE 1 PUFF BY MOUTH TWICE A DAY 07/28 completed Not Available Not Available Not Available Vitamin D3 50 mcg (2,000 unit) tablet Take 1 tablet every day by oral route. active Not Available Not Available No t Available Multaq 400 mg tablet TAKE 1 TABLET BY MOUTH TWICE A DAY WITH MEALS 07/28 completed Not Available Not Available Not Available Xarelto 20 mg tablet TAKE 1 TABLET BY MOUTH EVERY DAY WITH DINNER active Not Available Not Available No t Available Tiadylt ER 360 mg capsule,ext ended release Take 1 capsule every day by oral route for 90 days. 11/20 completed Not Available Not Available Not Available Flowflex COVID-19 Antigen Home Test kit USE DIRECTED 10/12 completed Not Available Not Available Not Available Vitals Date Recorded Body height Heart rate Oxygen saturation Oxygen saturation in Arterial blood by Pulse oximetry Systolic blood pressure Diastolic blood pressure Provider Name and Address Organization Details Last Updated DateTime 4 157.48 cm 56 /min 97 % 97 % 130 mm[Hg] 80 mm[Hg] Mary Jo Alberts [facility] 4 12:00:03 Date Recorded Body height Heart rate Oxygen saturation Oxygen saturation in Arterial blood by Pulse oximetry Systolic blood pressure Diastolic blood pressure Provider Name and Address Organization Details Last Updated DateTime 5 157.48 cm 91 /min 98 % 98 % 150 mm[Hg] 88 mm[Hg] Deyanira Hollins [facility] 5 09:36:47 Date Recorded Body height Body mass index (BMI) Body weight Heart rate Oxygen saturation Oxygen saturation in Arterial blood by Pulse oximetry Systolic blood pressure Diastolic blood pressure Provider Name and Address Organization Details Last Updated DateTime 5 157.48 cm 28.3 kg/m2 85460.8 2 g 88 /min 95 % 95 % 110 mm[Hg] 74 mm[Hg] Mary Jo Alberts [facility] 08:54:10 Social History Question Answer Notes LastModified by Organizat ion Details LastModified Time Tobacco Smoking Status Former Smoker Not Available [facility] 03/12/2020 03:36:23 What Was The Date Of Your Most Recent Tobacco Screening? 09/15/2024 [email or web address] Information not available 09/15/2024 Do You Or Have You Ever Used Any Other Forms Of Tobacco Or Nicotine? No Information not available 12/31/2021 Sex: Unknown Functional Status None recorded. Mental Status None recorded. Family History Nothing Reported. Medical History No medical history recorded. Gynecological HistoryNo gynecological history recorded. Obstetrics History GPAL:G 0 P 0 0 0 0 Immunizations Vaccine Type Date Status Note Provider Nam e and Address Organization Details Recorded Time COVID-19, mRNA, LNP-S, PF, 30 mcg/0.3 mL dose 02/21/20 21 completed Nick Alva DO [address] [place] [address], [phone], [facility] 03/03/2021 10:52:15 Influenza, split virus, quadrivalent, preservative 01/30/20 21 completed Nick Alva DO [address] [place] [address], [phone], [facility] 03/03/2021 10:52:26 Tdap 05/21/19 21 completed Nick Alva DO [address] [place] [address], [phone], [facility] 03/03/2021 10:53:12 pneumococcal polysaccharide PPV23 12/02/19 18 completed Nick Alva DO [address] [place] [address], [phone], [facility] 03/03/2021 10:53:42 Pneumococcal conjugate PCV 13 09/19/19 10 completed Nick Alva DO [address] [place] [address], [address], [facility] 03/03/2021 10:53:56 Influenza, split virus, quadrivalent, preservative 02/22/20 22 completed Kelly hood [facility] 02/23/2022 09:40:43 Influenza, adjuvanted, trivalent, PF 03/06/20 18 completed Gloria hood [facility] 12/08/2019 10:27:25 influenza, unspecified formulation 01/30/20 23 completed Wyatt hood [facility] 02/01/2023 07:13:14 Pneumococcal conjugate PCV20, polysaccharide [id number] conjugate, adjuvant, PF 01/30/20 23 completed Wyatt hood [facility] 02/01/2023 07:13:34 Influenza, [place] 02/28/20 24 completed Wyatt hood [facility] 03/03/2024 11:13:12 Influenza, split virus, quadrivalent, preservative 03/01/20 19 completed Gloria hood [facility] 12/08/2019 10:27:25 Influenza, split virus, quadrivalent, preservative 01/26/20 20 completed Nick Alva DO [address] [place] [address], [phone], [facility] 01/27/2020 15:14:57 COVID-19, mRNA, LNP-S, PF, 30 mcg/0.3 mL dose 06/15/19 21 completed Annetta hood [facility] 06/17/2020 09:39:50 COVID-19, mRNA, LNP-S, PF, 30 mcg/0.3 mL dose 07/12/19 21 completed Annetta hood [facility] 07/15/2020 10:14:25 Past Encounters Encounter ID Performer Location Encounter Start Date Encounter Closed Date Diagnosis/Indication Diagnosis SNOMED-CT Code Diagnosis ICD10 Code Diagnosis Note [id number] Nick Alva DO [facility] [address] [place] [address],[facility] [place] [address] 05/18/2018 12:09:20 05/18/2018 19:38:51 Neck pain 03358651 M54.2 will order xrays of c spine Flank pain 737474241 R10 .9 will have an US to check for kidney but feel it is poss muscular as palp pain is over the hip around iliac crest and radiates to vertebrals On examina tion - herpes labialis-cold sore 073708637 B00.1 has a issue with oral cold sores Trigger fi nger of right hand [id number] 3498833 M65.30 [id number] Nick Alva DO [facility] [address] [facility],Marcos ityamile Alba [place] [address] 06/08/2018 12:09:52 06/08/2018 13:49:53 Atrial fibrillation 47189894 I48.91 needs to see cardiology sooner than late july must be seen sooner will need to order event monitor and we will also get an echo Hypertensive disorder 38 476016 I10 has been dropping low at home at any time Dyspnea on exertion 6084 5006 R06.09 has been very marked lately ? if this is cardiac origin will order cardiac perfusion and will call cardiology Degenerati on of cervical intervertebral disc 08477947 M50.30 ALSO HAS SUBLUX OF c3 WILL NEED SPECIALIST after cardiac workup Degenerati on of lumbar intervertebral disc 70771687 M51.36 same has noted signif disease will need specialist after cardiac workup [id number] Nick Alva DO [facility] [address] [facility],[place] ityamile Alba [facility] [address] 07/06/2018 10:53:29 07/06/2018 11:49:56 Hypertensive disorder 96529748 I10 has been dropping low at home at any time and i am wondering if this is also contributi ng to her symptom complex will have her cut the fosinopril in half to 10mg Atrial fibrillation 4943 6004 I48.91 SHE IS HAVING BREAKTHROU GH PAROXYSMAL AFIB WHICH HAS BEEN SYMPTOMATI C needs to see cardiology sooner than late july must be seen sooner HOLTER REVEALED PAROX AFIB WHICH CORRESPOND ED TO HER DIARY OF SYMPTOMS sestamibi was NE[place] [id number] Nick Alva DO [facility] [address] [facility],[place] ite Anjali [facility] [address] 01/13/2019 10:42:15 01/13/2019 11:51:55 Hypercholesterolemia 12348788 E78.00 denies issues Asthma 499210111 J45.90 9 Hypertensive disorder 38 319158 I10 bps have been good no iisues Kidney stone 13999451 N2 0.0 progressiv e right lateral abdominal pain Atrial fibrillation 4943 6004 I48.91 SHE IS HAVING BREAKTHROU GH PAROXYSMAL AFIB WHICH HAS BEEN SYMPTOMATI C needs to see cardiology sooner than late july must be seen sooner HOLTER REVEALED PAROX AFIB WHICH CORRESPOND ED TO HER DIARY OF SYMPTOMS sestamibi was NEGATIVE thankfully for cad or valvular ds now on flecanide and xarelto Right slaughter tid artery stenosis [id number] 34217 I65.21 will order carotid US Herniation of rectum into vagina 086916009 N81.6 will refer to infant lead teacher [id number] Nick Alva [facility] [address] [facility], [place] [address] 02/06/2019 09:29:17 02/06/2019 12:25:24 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 [id number] Nick Alva [facility] [address] [facility], it[place] [facility] [address] 02/07/2019 13:25:17 02/07/2019 13:56:34 Cholelithiasis without obstruction 22126833 K80.20 symptoms have been frequent with noted poss biliary colic and radiation around to her back we will refer for opinion of surg Carotid ar diana stenosis 08063669 I65.29 right side and is between 59-70 % will follow as necess Hypertensive disorder 38 513029 I10 bps have been good no iisues Vitamin B1 2 deficiency (non anemic) 27339866 E53.8 [id number] Nick Alva [facility] [address] [facility],[place] D [place] [address] 02/13/2019 09:16:13 02/13/2019 16:54:19 Cobalamin deficiency 103338123 E53.8 [id number] Nick Alva [facility] [address] [facility],[place] [address] 02/22/2019 13:23:17 02/22/2019 14:22:54 Cobalamin deficiency 719193249 E53.8 [id number] Nick Alva [facility] [address] [place] [address] 03/01/2019 09:24:45 03/01/2019 12:05:28 Cobalamin deficiency 930199976 E53.8 [id number] Nick Alva [facility] [address] [facility],[place] [address] 03/24/2019 13:23:31 03/24/2019 13:52:05 Atrial fibrillation 02753577 I48.91 no afib now on flecanide and xarelto Hypertensive disorder 38 637110 I10 bps have been good no issues and was stable during surgery Asthma 881556325 J45.90 9 no wheezing and is feeling well does get exertional dyspnea Pain of bi lateral hip joints 9611847071 8180960 M25.551 [id number] Nick Alva [facility] [address] [facility],[place] [address] 04/03/2019 09:20:29 04/03/2019 09:30:23 Cobalamin deficiency 541873165 E53.8 [id number] Nick Alva [facility] [address] [place] [address] 04/24/2019 14:55:48 04/24/2019 15:53:08 Trochanteric bursitis of right hip 6678976076 66390 M70.61 Degenerati on of lumbar intervertebral disc 47285086 M51.36 same has noted signif disease will need specialist and she has appt with dr Dior in [place] but first we will see how much pain we can alleviate with the treatment for troch bursitis [id number] Nick Alva [facility] [address] [place] [address] 05/01/2019 09:34:00 05/01/2019 09:50:21 Cobalamin deficiency 837404063 E53.8 [id number] Nick Alva [facility] [address] [place] [address] 05/31/2019 09:51:04 05/31/2019 10:09:03 Cobalamin deficiency 672020527 E53.8 [id number] Nick JenniferJeff Alva [facility] [address] [facility] [address],[place] [address] 07/03/2019 09:26:54 07/03/2019 09:41:12 Cobalamin deficiency 359128634 E53.8 [id number] Nick JenniferJeff Alva [facility] [address] [facility] [address],[place] [address] 08/02/2019 09:30:48 08/02/2019 11:27:47 Cobalamin deficiency 363851292 E53.8 [id number] Nick Alva [facility] [address] [facility] [address],[place] [address] 08/30/2019 09:36:43 08/30/2019 11:39:14 Cobalamin deficiency 224175377 E53.8 [id number] Nick Alva [facility] [address] [facility] [address],[place] [facility] [place] [address] 09/29/2019 09:18:54 09/29/2019 09:26:05 Cobalamin deficiency 366668705 E53.8 [id number] Nick JenniferJeff Alva [facility] [address] [facility] [address],[place] [address] 10/30/2019 09:27:59 10/30/2019 11:58:34 Cobalamin deficiency 072165781 E53.8 [id number] Nick Alva [facility] [address] [facility] [address],[place] [address] 11/21/2019 13:54:27 11/21/2019 15:22:27 Atrial fibrillation 21605156 I48.91 no afib now on flecanide and xarelto Hypertensive disorder 38 991896 I10 running too low will need to decrease the fosinopril and rechk Fatigue 10810246 R53.83 rechk lab wondering if it is her low bp and we will [place] [id number] [facility] [address] [facility] [address],[place] [address] 12/01/2019 09:29:43 12/01/2019 10:04:06 Cobalamin deficiency 611884697 E53.8 [id number] Nick Alvarado Babar [facility] [address] [facility] [address],[place] [address] 12/08/2019 10:12:49 12/08/2019 12:22:59 Asthma 399551775 J45.909 no wheezing and is feeling well does get exertional dyspnea Greater tr ochanteric pain syndrome 4254798 M70.60 will have her see ortho for a cortisone injection for the bursitis noted bilaterall y 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 71964850 M46.1 will ask that she see ortho for possible injection of cortisone to the SI joint [id number] Nick Christiano Alva [facility] [address] [facility],[place] [address] 01/01/2020 09:46:16 01/01/2020 10:09:38 [id number] Nick RodriguezJeff Alva [facility] [address] [facility] [address],[place] [address] 01/31/2020 09:18:58 01/31/2020 10:26:37 Cobalamin deficiency 049167546 E53.8 [id number] Nick RodriguezJeff Alva [facility] [address] [facility] [address],[place] [address] 03/01/2020 09:26:46 03/01/2020 10:13:38 Cobalamin deficiency 696419957 E53.8 [id number] Nick RodriguezJeff Alva [facility] [address] [facility] [address],[place] [address] 03/12/2020 14:39:49 03/12/2020 15:41:41 Dysuria 13406857 R30.9 will send out for culture Asthma 767870107 J45.90 9 stable [id number] Nick Christiano Alva [facility] [address] [facility] [address],[place] [address] 04/03/2020 09:30:19 04/03/2020 10:12:30 Cobalamin deficiency 414821953 E53.8 [id number] Nick Alva [facility] [address] [facility],[place] [address] 05/13/2020 10:08:59 05/13/2020 13:50:36 Cobalamin deficiency 531877247 E53.8 [id number] Nick Alva [facility] [address] [facility],[place] [address] 06/17/2020 09:28:25 06/17/2020 09:48:28 Cobalamin deficiency 352490196 E53.8 [id number] Nick Alva [facility] [address] [facility],[place] [address] 07/05/2020 11:49:32 07/05/2020 12:20:03 Disorder of vitamin B12 478749292 E53.8 will have her get more blood work Hypertensive disorder 38 777993 I10 running too low will need to decrease the fosinopril and rechk home bp list running from 120's to 140's relates her sister has passed so this didnt help Atrial fibrillation 4943 6004 I48.91 no afib now on flecanide and xarelto Osteoporosis 73660464 M8 1.0 will need to get rechecked Fatigue 47520009 R53.83 rechk lab wondering if it is her low bp and we will be modifying her bp med Degenerati on of thoracic intervertebral disc 87361358 M51.34 having ongoing discomfort to her right sided low back Dyspnea on exertion 6084 5006 R06.09 has been very marked lately ? if this is cardiac origin will order cardiac perfusion and will call cardiology [id number] Nick Alva [facility] [address] [facility],[place] [address] 07/17/2020 09:28:42 07/17/2020 11:53:44 Cobalamin deficiency 154089561 E53.8 [id number] Nick lAva [facility] [address],[place] [address] 08/16/2020 09:46:46 08/16/2020 10:49:38 Cobalamin deficiency 015684437 E53.8 [id number] Nick Alva [facility] [address] [facility] [address],[place] [address] 09/20/2020 09:25:54 09/20/2020 15:02:33 Cobalamin deficiency 736443923 E53.8 [id number] Nick JenniferJeff Alva [facility] [address] [facility] [address],[place] [address] 10/21/2020 09:28:20 10/21/2020 09:41:37 Cobalamin deficiency 828563821 E53.8 [id number] Nick Alva [facility] [address] [facility] [address],[place] [address] 11/20/2020 09:25:52 11/20/2020 11:53:05 Cobalamin deficiency 926147942 E53.8 [id number] Nick Alva [facility] [address] [facility] [address],[place] [address] 12/23/2020 09:40:24 12/23/2020 09:54:54 Cobalamin deficiency 844555379 E53.8 [id number] Nick JenniferJeff Alva [facility] [address] [facility] [address],[place] [address] 01/21/2021 09:25:34 01/21/2021 12:05:14 Cobalamin deficiency 635610439 E53.8 [id number] [facility]Jeff [facility] [address] [facility] [address],[place] [address] 02/24/2021 10:11:38 02/24/2021 11:18:07 Cobalamin deficiency 220679758 E53.8 [id number] Nick Alva [facility] [address] [facility] [address],[place] [address] 03/03/2021 10:47:47 03/03/2021 12:05:03 Hypertensive disorder 29157220 I10 running too low will need to decrease the fosinopril and rechk home bp list running from 120's to 140's and diastolics are in the 50's - 60's relates her sister has passed so this didnt help Atrial fibrillation 4943 6004 I48.91 no afib now on multaq starting dec 14 per cardiology and xarelto 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 13213487 M46.1 still having discomfort in the right side of her area got a shot at one point with a cortisone shot and she doesnt feel it really made a difference Degenerati on of lumbar intervertebral disc 67545675 M51.36 still in discomfort but this does not stop her from working in [employer] will have her see dr filipe kendrick and have her get eval Herniation of rectum into vagina 879701465 N81.6 will refer to infant lead teacher [id number] Nick Alva [facility] [address] [place] [address] 03/26/2021 09:24:11 03/26/2021 10:45:02 Cobalamin deficiency 654971056 E53.8 [id number] Nick Alva [facility] [address] [place] [address],[place] [address] 05/28/2021 08:09:55 05/30/2021 11:39:47 Atrial fibrillation 25947636 I48.91 no afib now on multaq starting dec 14 per cardiology and xarelto 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 29223491 M46.1 still having discomfort in the right side of her area got a shot at one point with a cortisone shot and she doesnt feel it really made a difference Hypertensive disorder 38 143167 I10 bps have been elevated since having covid relates that she is good with her meds COVID-19 069784911 U07.1 resolveed last april and feels much better now relates that she has noticed an elevation of her bp since she had been sick Thoracic back pain 57220 [address]54[address] kendrick [id number] Nick Alva [facility] [address] [facility],[place] [address] 2021 09:32:44 2021 12:02:55 Cobalamin deficiency 604145214 E53.8 [id number] Nick Alva [facility] [address] [facility],[place] [address] 07/02/2021 12:02:05 07/02/2021 12:47:36 Hypertensive disorder 85312993 I10 bps have been elevated since having covid relates that she is good with her medsand for the most part the systolics are good was a little high after the epidural as expected Disorder o f vitamin B12 418307909 E53.8 will have her get more blood work Atrial fibrillation 4943 6004 I48.91 no afib now on multaq starting dec 14 per cardiology and xarelto Osteopenia 934232249 M85 .80 [id number] Nick Rodriguezarthur [facility] [address] [facility],[place] [address] 08/13/2021 09:22:58 08/13/2021 11:25:44 Cobalamin deficiency 503971463 E53.8 [id number] Nick Alva [facility] [address] [facility],[place] [address] 09/09/2021 13:46:50 09/09/2021 16:20:37 Asthma 455845143 J45.909 no wheezing and is feeling well does get exertional dyspnea Hypertensive disorder 38 548856 I10 bps have been elevated since having covid relates that she is good with her medsand for the most part the systolics are good was a little high Osteoporosis 96545034 M8 1.0 will need to get rechecked Atrial fibrillation 4943 6004 I48.91 no afib now on multaq and feeling well Disorder o f vitamin B12 492832000 E53.8 will have her get more blood work Hypercholesterolemia 136 99553 E78.00 denies issues Anxiety 80410852 F41.9 under control but occ needs help [id number] Nick Alvarado Babar, [facility] [address] [facility] [address],[place] [address] 09/12/2021 09:31:04 09/12/2021 10:32:36 Cobalamin deficiency 097795066 E53.8 [id number] Nick Alva, [facility] [address] [facility],[place] [address] 10/13/2021 09:25:18 10/13/2021 15:45:41 Cobalamin deficiency 830490781 E53.8 [id number] Nick Alva [facility] [address] [facility] [address],[place] [address] 11/19/2021 09:37:11 11/19/2021 14:51:18 Cobalamin deficiency 351659700 E53.8 [id number] Nick Alva [facility] [address] [facility],[place] [address] 12/24/2021 09:26:37 12/24/2021 10:20:52 Cobalamin deficiency 196631277 E53.8 [id number] Nick Alva [facility] [address] [facility],[place] [address] 12/31/2021 09:52:55 12/31/2021 10:28:15 Hypercholesterolemia 90771638 E78.00 denies issues Asthma 161414250 J45.90 9 no wheezing and is feeling well does get exertional dyspnea Gastroesop hageal reflux disease 438554590 K21.9 we will get her to cont the PPIs Disorder o f vitamin B12 127245304 E53.8 will have her get more blood work Hypertensive disorder 38 637125 I10 bps have been elevated since having covid relates that she is good with her medsand for the most part the systolics are good was a little high Atrial fibrillation 4943 6004 I48.91 no afib now on multaq and feeling well Advance care planning 71 6903466 Z71.89 done Active or passive immunization 865312899 Z23 patient advised she is due for shingles Pain of ri ght shoulder joint 2144385777 3507976 M25.511 we will see her after she gets an xray Pain of ri ght hip joint 1813596250 22931 M25.551 also pain right pain Gout 51557567 M10.9 [id number] Nick Alva [facility] [address] [facility] [address],[place] [address] 01/23/2022 09:27:44 01/23/2022 10:43:44 Cobalamin deficiency 891203718 E53.8 [id number] Nick Alva [facility] [address] [facility],[place] [address] 02/23/2022 09:28:19 02/23/2022 11:44:36 Cobalamin deficiency 391245442 E53.8 [id number] Nick Alva [facility] [address] [facility],[place] [address] 03/09/2022 13:57:12 03/09/2022 16:27:19 Pain of right shoulder joint 4812392550 1068969 M25.511 we will see her after she gets an xray needs an MRIhas OA Active or passive immunization 352403305 Z23 patient advised she is due for shingles Cobalamin deficiency 190 926450 E53.8 will need lab Hypercholesterolemia 136 21317 E78.00 denies issues Atrial fibrillation 4943 6004 I48.91 no afib now on multaq and feeling wellstill stable Hypertensive disorder 38 478064 I10 bps have been elevated since having covid relates that she is good with her medsand for the most part the systolics are good was a little high Carotid atherosclerosis 451731173 I65.29 she had evidence of atheroscle rosis on US done in 2017 Gastroesop hageal reflux disease 168801659 K21.9 we will get her to cont the PPIs Candidiasis of vagina 72 136386 B37.31 [id number] Nick Alva [facility] [address] [facility] [address] 03/25/2022 09:27:04 03/25/2022 09:52:29 Cobalamin deficiency 717668017 E53.8 will need lab [id number] Nick Alva [facility] [address] [facility] [address],[place] [address] 04/24/2022 09:26:58 04/24/2022 15:13:04 Cobalamin deficiency 120887305 E53.8 will need lab [id number] Nick Alva [facility] [address] [facility] [address],[place] [address] 05/27/2022 09:19:22 05/27/2022 14:01:04 Cobalamin deficiency 728751029 E53.8 will need lab [id number] Nick Alva [facility] [address] [facility] [address],[place] [address] 06/17/2022 09:34:20 06/17/2022 15:19:14 Acute bronchitis 22139727 J20.8 will start on empiric treatmentn eeds CXR for the bloody mucus production [id number] Nick Alva [facility] [address] [facility] [address],[place] [address] 07/01/2022 09:22:07 07/01/2022 09:41:03 Cobalamin deficiency 831179487 E53.8 will need lab [id number] Nick Alva [facility] [address] [facility] [address],[place] [address] 07/31/2022 09:24:46 07/31/2022 13:34:48 Cobalamin deficiency 120853195 E53.8 will need lab [id number] Nick Alva [facility] [address] [facility] [address],[place] [address] 08/03/2022 15:41:55 08/04/2022 08:01:57 Asthma 410349156 J45.909 still having a coughhavin g side effect with symbicort getting a read sensation and has to hold on until passes does get exertional dyspnea Anxiety 94866061 F41.9 under control but occ needs help Atrial fibrillation 4943 6004 I48.91 no afib now on multaq and feeling wellstill stable Hypertensive disorder 38 335103 I10 still doing okbps have been ok now since having covid relates that she is good with her medsand for the most part the systolics are good was a little high 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 03049475 M46.1 still having discomfort in the right side of her area got a shot at one point with a cortisone shot and she doesnt feel it really made a difference [id number] Nick Alva [facility] [address] [facility],[place] [address] 08/31/2022 09:28:48 08/31/2022 10:41:30 Cobalamin deficiency 639391583 E53.8 will need lab [id number] Nick Alva [facility] [address] [facility],[place] [address] 09/30/2022 09:26:38 09/30/2022 14:14:43 Cobalamin deficiency 035275801 E53.8 will need lab [id number] Nick Alva [facility] [address] [place] [address],[place] [address] 10/20/2022 10:20:59 10/20/2022 11:42:58 Impacted cerumen of bilateral ears 0709416311 708406 H61.23 bilateral impaction Acute otitis media 37134 03 H66.93 agreed to start on ear drop for the inflammati on and retraction in the ear [id number] Nick Alva [facility] [address] [place] [address],[place] [address] 10/30/2022 09:26:36 10/30/2022 10:34:57 Cobalamin deficiency 044994656 E53.8 will need lab [id number] Nick Alva DO [facility] [address] [facility],[place] [address] 11/30/2022 09:28:52 11/30/2022 10:27:39 Cobalamin deficiency 887938846 E53.8 will need lab [id number] Nick Alva [facility] [address] [facility] [address],[place] [address] 12/04/2022 08:04:10 12/04/2022 14:12:05 Hypertensive disorder 68416436 I10 still doing okbps have been ok now since having covid relates that she is good with her medsand for the most part the systolics are good was a little high Idiopathic pulmonary fibrosis 022571399 J84.112 frustrated that she gets sob Gout 82081810 M10.9 believe that she prob has residual damage to the jointstate s that this is a prob at times Atrial fibrillation 4943 6004 I48.91 no afib following the cardiologi st now on multaq and feeling wellstill stable [id number] Nick Alva [facility] [address] [facility] [address],[place] [address] 12/30/2022 09:28:15 12/30/2022 10:28:17 Cobalamin deficiency 633602971 E53.8 will need lab [id number] Nick Alva [facility] [address] [facility] [address],[place] [address] 02/01/2023 09:28:55 02/01/2023 11:53:27 Cobalamin deficiency 725399929 E53.8 will need lab [id number] Nick Alva [facility] [address] [facility] [address],[place] [address] 03/01/2023 09:41:18 03/01/2023 10:27:38 Cobalamin deficiency 201273213 E53.8 will need lab [id number] Nick Alva [facility] [address] [facility] [address],[place] [address] 04/05/2023 09:38:44 04/05/2023 10:00:14 Cobalamin deficiency 695949745 E53.8 [id number] Nick Alva [facility] [address] [facility] [address],[place] [address] 06/18/2023 10:24:48 06/18/2023 11:46:09 Adult health examination [id number] Z00.01 actually doing quite well and only issue really is her occ exertional dyspneahad a normal myocard nuclear scan and ett last spring but dr gordon may have discovered IPF we will await dr gordon input apparently dr ruiz wanted a heart cath but pt cxld which i th-ink was prob for the better Screening for cardiovascular system disease 942211515 Z13.6 Asthma 905782983 J45.90 9 still having a coughhavin g side effect with symbicort getting a read sensation and has to hold on until passes does get exertional dyspnea Hypertensive disorder 38 357497 I10 still doing okbps have been ok now since having covid relates that she is good with her medsand for the most part the systolics are good was a little high Idiopathic pulmonary fibrosis 542585980 J84.112 frustrated that she gets sob [id number] Nick Alva [facility] [address] [facility],[place] [address] 05/17/2023 10:44:01 05/17/2023 11:16:21 Cobalamin deficiency 408734680 E53.8 [id number] Nick Alva [facility] [address] [place] [address] 06/16/2023 09:52:53 06/18/2023 11:49:13 Cobalamin deficiency 586443315 E53.8 [id number] Nick Alva [facility] [address] [place] [address] 07/16/2023 09:44:34 07/16/2023 14:49:36 Cobalamin deficiency 741268801 E53.8 [id number] Nick Alva [facility] [address] [place] [address] 08/16/2023 09:38:25 08/16/2023 13:47:11 Cobalamin deficiency 811617182 E53.8 [id number] Nick Alva [facility] [address] [place] [address] 09/15/2023 09:39:56 09/15/2023 14:16:28 Cobalamin deficiency 611310554 E53.8 [id number] Nick Alva [facility] [address] [facility],[place] [address] 10/13/2023 09:25:17 10/13/2023 10:45:01 Cobalamin deficiency 151199752 E53.8 [id number] Nick Alva [facility] [address] [facility],[place] [address] 10/26/2023 13:51:49 10/26/2023 14:26:42 Depression screening 534665288 Z13.31 SCREENING NEGATIVE Hypertensive disorder 38 086699 I10 getting dizzy and nauseated with increase in dose of fosinopril bps have been ok now since having covid relates that she is good with her medsand for the most part the systolics are good was a little high Herpes zoster 4083428 B0 2.9 discussed in detail has along max br of trigemtold she needs to get shingrix in a few months Atrial fibrillation 4943 6004 I48.91 no afib following the cardiologi st now on multaq and feeling wellstill stable [id number] Nick Alva, [facility] [address] [facility],[place] [address] 11/15/2023 09:28:25 11/15/2023 09:46:08 Cobalamin deficiency 130472642 E53.8 [id number] Nick Alva [facility] [address] [facility],[place] [address] 12/13/2023 09:25:01 12/13/2023 09:55:21 Cobalamin deficiency 196590873 E53.8 [id number] Nick Alva [facility] [address] [facility],[place] [address] 02/11/2024 09:52:54 02/11/2024 10:06:04 Cobalamin deficiency 091803277 E53.8 [id number] Nick Alva [facility] [address] [facility],[place] [address] 03/10/2024 09:21:19 03/10/2024 09:59:59 Cobalamin deficiency 763707695 E53.8 [id number] Nick Christiano Alva [facility] [address] [facility], [place] [address] 03/29/2024 11:35:07 03/29/2024 13:17:41 Asthma 130635194 J45.909 still having a coughhavin g side effect with symbicort getting a read sensation and has to hold on until passes does get exertional dyspnea Malignant tumor of breast 098367661 C50.011 2013 presumed cure but is having pain Osteoporosis 07631945 M8 1.0 will need to get rechecked Arthritis of first carpometacarpal joint of right hand 3264936083 650626 M13.841 known djd will consider lalita inj Pain of right breast 935 3756521 N64.4 hx of breast ca Idiopathic pulmonary fibrosis 806984786 J84.112 will be seeing new pulm will get a new pft to document stable or progress Facial eczema 197888531 L30.9 [id number] Nick Alva [facility] [address] [facility] [place] [address] 07/28/2024 09:25:16 07/28/2024 12:00:33 Adult health examination 395868297 Z00.00 overall is doing ok and is having her usual issue with dyspn Prioractua lly doing quite well and only issue really is her occ exertional dyspneahad a normal myocard nuclear scan and ett last spring but dr gordon may have discovered IPF we will await dr gordon input apparently dr ruiz wanted a heart cath but pt cxld which i th-ink was prob for the better Screening for cardiovascular system disease 600700662 Z13.6 followed by cardiolo Asthma 114682157 J45.90 9 still having a coughhavin g side effect with symbicort getting a read sensation and has to hold on until passes does get exertional dyspnea Cobalamin deficiency 190 325472 E53.8 Carotid atherosclerosis 631799307 I65.29 she had evidence of atheroscle rosis on US done in 2017 Interstiti al lung disease 181109200 J84.9 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 will use low dose short course of pred Gout 29744433 M10.9 believe that she prob has residual damage to the jointstate s that this is a prob at times [id number] Nick Alva DO [facility] [address],[place] [address] 08/30/2024 09:36:59 08/30/2024 09:59:41 Health Concerns Section Related Observation LastModified by Organization Detai ls LastModified Time None Recorded Concern Status LastModified by Organization Details LastModified Time None Recorded Advance Directives Directive None Recorded Payers Encounter Date Sequence Insurance Name Policy Number Policy Stephens Covered Member ID Stephens Member ID Guarantor Name 03/10/2024 2 [place] [id number] Rashmi Fappiano [id number] Rashmi Fappiano 03/10/2024 1 [place] Rashmi Carvajal Fappiano [id number] Rashmi Fappiano 03/29/2024 2 [place] [id number] Rashmi Fappiano [id number] Rashmi Fappiano 03/29/2024 1 [place] Rashmi Carvajal Fappiano [id number] Rashmi Fappiano 07/28/2024 2 [place] [id number] Rashmi Fappiano [id number] Rashmi Fappiano 07/28/2024 1 [place] Rashmi Carvajal Fappiano [id number] Rashmi Fappiano 08/30/2024 2 [place] [id number] Rashmi Fappiano [id number] Rashmi Fappiano 08/30/2024 1 [place] Rashmi Carvajal Fappiano [id number] Rashmi Arzate Notes Date Note Type Note Provider Name a nd Address Organization Details Recorded Time 4 text/html here for rechkasking about prevagen 'she relates that with right thumb and right great toe are very sorewe know she as OA of the thumb jtalso, the gout has damaged her right great toe she is having pain in her right breast reviewed lab in detail Nick Alva, DO [address] [place], [address], [facility] [place] [facility] 03/29/2024 12:31:03 5 text/html Medicare Annual Wellness VisitReported bypatient.Diet and Nutrition:healthy diet Fracture Risk:no history of fractures; no recent explained fracture; no sudden unexplained fractures; no previous musculoskeletal injuries Physical Activity:exercises on a regular basis; recent increase in physical activity; good physical condition Depression Risk:never feels sad, empty, or tearful; no loss of interest in activities; no significant changes in weight; no sleep disturbances or insomnia; no agitation; no loss of energy; no feelings of worthlessness or guilt; no thoughts of suicide; no history of depression; no history of mood disorders Orientation:no disorientation to time; no disorientation to date; no disorientation to place Concentration and Memory:no decreased concentrating ability; no memory lapses or loss; does not forget words Speech/Motor difficulties:no speech difficulties; no difficulty expressing formulated concepts; no difficulty with fine manipulative tasks; no difficulty writing/copying; no slowed reaction time; does not knock things over when trying to pick them up Hearing:no loss of hearing Vision:no vision problems Activities of Daily Living:able to bathe with limited or no assistance; able to contol urination and bowels; able to dress with limited or no assistance; able to feed self with limited or no assistance; able to get out of chair or bed with limited or no assistance; able to groom with limited or no assistance; able to toilet with limited or no assistance Instrumental Activities of Daily Living:able to do house work with limited or no assistance; able to grocery shop with limited or no assistance; able to manage medications with limited or no assistance; able to manage money with limited or no assistance; able to prepare meals with limited or no assistance; able to use the phone with limited or no assistance Falls Risk Assessment:no frequent falls while walking; no fall in the past year; no fall since last visit; no dizziness/vertigo Home Safety:no unsafe puja hazzards; no unsafe stairs; no unsafe gas appliances; working smoke/CO detectors; wears protective head gear for biking/high velocity; use of seatbelts; practicing 'safer sex'; no vision or hearing loss while driving; no fire arms; has hand bars in the bathroom/shower; good lighting in the home Nick Alva, DO [address] [facility], [place], [address], [facility] 07/28/2024 10:11:48 OBGyn Episode No OBEpisode recorded.
--- OUTSIDE RECORDS SUMMARY | 2024-09-15 09:28 | XMS_ITS | Patient Health Record ---
Author Organization [facility] Address [address] [place] [address] Care Team Providers Care Vice President Diversity Name Role Phone LESLEY ALVA Primary Care Provider HAO Treviño Unavailable [phone] Allergies Allergen (clinical drug ingredient) Drug/Non Drug Allergy documented on EMR Reaction Allergy Type Onset Date Status Information temporarily unavailable Statins joint pain Drug Allergy Active Reason For Referral No Information Medications Medication SIG (Take, Route, Frequency, Duration) Notes Start Date End Date Status dilTIAZem HCl ER Coated Beads 300 MG TAKE 1 CAPSULE BY MOUTH EVERY DAY Oral for 90 Active Xarelto 20 MG Oral for 90 Acti ve Vitamin A & D 58224-329 UNIT as directed Orally Active Zafirlukast 20 [...] Are you an other tobacco user? 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 Plan Of Treatment No Information Insurance Providers Payer Name Payer Address Payer Phone Subscriber Number Group Number Insured Name Patient Relationship to Insured Coverage Start Date Coverage End Date MEDICARE [address] DANNY WHITLOCK [id number] [phone] [id number] BELA CRAIG Self - patient is the insured MEDEX [address] [place] [address] [id number] BELA CRAIG Self - patient is the insured Medical (General) History Medical History History ICD Code ASTHMA LIVER/GALLBLADDER DISEASE AFIB ARTHRITIS Malignant neoplasm of central portion of right female breast C50.111 Essential (primary) hypertension I10 Surgical History Surgery Date(Month/Year) ANJEL/BSO for bleeding 1990 CHOLECYSTECTOMY 2019 Hospitalization History Reason Date(Month/Year) CHILDBIRTH
[2024-09-15 13:08] LABS: MANUAL DIFF FLAG NO
[2024-09-15 13:24] LABS: Basophils Percent Auto 0.3 % (0-2); Eosinophils Absolute Auto 0.6 X10*3/uL (0.0-0.4); Eosinophils Percent Auto 5.4 % (0-4); Hematocrit 35.4 % (37.0-47.0); Hemoglobin 11.3 g/dl (12.0-16.0); Imm Gran Abs Auto 0.08 X10*3/uL (0.00-0.03); Imm Gran Pct Auto 0.7 % (0.0-0.4); Lymphocytes Absolute Auto 0.7 X10*3/uL (1.2-4.9); Lymphocytes Percent Auto 5.9 % (20-40); Mean Corpuscular HGB Conc 31.9 g/dl (31.0-35.0); Mean Corpuscular Hemoglobin 26.5 pg (27.0-33.0); Mean Corpuscular Volume 83.1 fL (80.0-98.0); Mean Platelet Volume 11.6 fL (9.4-12.3); Monocytes Absolute Auto 1.1 X10*3/uL (0.1-1.2); Neutrophils Absolute Auto 9.3 x10*3/uL (2.0-8.3); Neutrophils Percent Auto 78.7 % (45-73); Platelet Count 209 X10*3/uL (160-400); Red Blood Count 4.26 X10*6/uL (4.20-5.50); Red Cell Distribution Width 15.1 % (11.0-16.0); White Blood Count 11.8 X10*3/uL (4.8-10.8)
[2024-09-15 13:36] LABS: Appearance Urine Clear; Color Urine Yellow; Glucose Urine UA Negative (Negative); Leukocyte Esterase Urine Trace (Negative); Nitrite Urine Negative (Negative); Specific Gravity - Urine 1.015 (1.005-1.025); UMIC TRIGGER UACC YES; Urine Blood Negative (Negative); Urine Ketones Negative (Negative); Urine Protein Negative (Neg-Trace)
[2024-09-15 13:40] LABS: Bacteria Urine None Seen (None Seen); RBC Urine 0-2 /HPF (0-2); WBC Urine 0-5 /HPF (0-5)
[2024-09-15 14:10] LABS: Alanine Aminotransferase 6 U/L (0-31); Albumin Level 3.7 g/dL (3.5-5.0); Alkaline Phosphatase 111 U/L (39-117); Anion Gap 14 (12-20); Aspartate Amino Transferase 22 U/L (5-31); Bilirubin Total 0.6 mg/dL (0.0-1.0); Blood Urea Nitrogen 21 mg/dL (9-16); C Reactive Protein 14.77 mg/dL (< or = 0.50); Calcium 9.1 mg/dL (8.4-10.2); Carbon Dioxide 20 mmol/L (22-29); Chloride 102 mmol/L (96-108); Estimated Glomerular Filt Rate 35; Glucose Random 106 mg/dL (60-115); Potassium 3.7 mmol/L (3.3-5.1); Sodium 132 mmol/L (135-145); Total Protein 6.9 g/dL (6.5-8.0)
[2024-09-15 14:18] LABS: Erythrocyte Sedimentation Rate 43 MM/HR (0-20)
== END 2024-09-15 09:15 | disposition home or self-care (01) ==
LOC: HO.MANLDS 09:14
PROVIDERS: Visit Provider Internal Medicine
DX: R50.9 Fever, unspecified (principal)
CPT/HCPCS: 36415; 80053; 81001; 85025; 85652; 86140; 87086